=== PATIENT | male | born 1950 | race Caucasian/White ===

== ENCOUNTER 2022-10-10 16:42 | Emergency (ER) | payer OTHER, SELFPAY ==
[2022-10-10 16:46] VITALS: BP 151/82; PULSE 51; RESP 14; TEMP 36.6; O2SAT 93; BMI 30.1
--- NOTE | 2022-10-10 17:08 | ED_ITS ---
HPI - General Adult General Time Seen by Provider: 17:08 Date Seen: 10/10/22 Chief complaint: Cough Stated complaint: Heartrate at 45, fluid in lungs Time Seen by Provider: 10/10/22 17:08 Source: patient Mode of arrival: ambulatory Limitations: no limitations History of Present Illness HPI narrative: Mr. Meza is a very pleasant 71-year-old male with history of myocardial infarction hyperlipidemia hypertension, and COPD who comes to the emergency room for evaluation regarding coughing and syncopal episodes. Patient notes that he has had ongoing cough for at least 3 months. He states that he has been to the ENT because of excess phlegm and recently his coughing has gotten worse. What he is concerned about and his as well is that he has had 3 episodes of fainting with coughing last night. He coughs at such as stretching so hard that his states that he became unresponsive. She describes the 1st 2 episodes as when he was sitting in his chair and his arms shook and any fell forward and is was unresponsive. This was only for a few seconds. She states that she hit him and then he came to. The 2nd time it happened last night it persisted a little bit longer but again she hit him and he came to it happened a 3rd time and he did fall but had no injury. He notes that he does have shortness of breath with exertion but does states that this is really nothing new. Upon further discussion they note that he has had problems with this since having influenza 2 years ago. He has had no recent COVID that he knows of. They also states that he has had fatigue which is unusual for him. He denies a fever or chills. Patient denies any chest pain except when he is coughing. He has had no fever or chills. He does not have a history of seizure. He denies headache. Related Data Home Medications Medication Instructions Recorded Confirmed diltiazem HCl 180 mg 180 mg PO DAILY 10/10/22 10/10/22 capsule,extended release 24 hr fluticasone propionate 50 intranasal 10/10/22 mcg/actuation nasal spray,suspension ipratropium bromide 42 mcg (0.06 intranasal 10/10/22 %) nasal spray lansoprazole 30 mg capsule,delayed 30 mg PO DAILY 10/10/22 10/10/22 release metoprolol tartrate 25 mg tablet 25 mg PO BID 10/10/22 10/10/22 nitroglycerin 0.4 mg sublingual sublingual PRN 10/10/22 tablet rosuvastatin 40 mg tablet 40 mg PO DAILY 10/10/22 10/10/22 tadalafil 20 mg tablet 20 mg PO DAILY PRN intercourse 10/10/22 10/10/22 Previous Rx's Medication Instructions Recorded finasteride 5 mg tablet 5 mg PO QDAY #90 tabs 08/28/22 terbinafine HCl 250 mg tablet 250 mg PO QDAY #90 tabs 09/04/22 levofloxacin 500 mg tablet 500 mg PO DAILY 7 days #7 tabs 10/10/22 Allergies Allergy/AdvReac Type Severity Reaction Status Date / Time No Known Drug Allergies Allergy Verified 10/10/22 19:41 Review of Systems Status of ROS: Reports: 10 or more systems reviewed and unremarkable except as noted in History and below Const: Reports: fatigue; Denies: fever or chills Eyes: Denies: change in vision ENMT: Denies: throat pain, neck pain, throat swelling, difficulty swallowing or hoarseness Cardio: Reports: shortness of breath with exertion; Denies: chest pain, swelling of feet/ankles or lightheadedness Resp: Reports: shortness of breath and cough GI: Denies: abdominal pain, nausea, vomiting, diarrhea or difficulty swall owing : Denies: painful urination Musculo: Denies: neck pain or extremity pain Neuro: Denies: headache, numbness in extremities or weakness in extremities Endo: Reports: fatigue Allergy/Immuno: Denies: throat swelling PFSH PFSH Social History Smoking Status: Former smoker Do you use any of these nicotine containing products: None Second hand tobacco smoke exposure: No How often do you have a drink containing alcohol: monthly or less AUDIT-C Alcohol total score: 1 Non-prescribed substance use: denies use Exam Narrative: Exam Narrative: Patient is alert and oriented. EOM is full and pupils are equal round reactive face symmetrical. Speech is normal. Neck is supple. Heart with a bradycardic rate but normal rhythm. Lungs are with a few crackles in the bases right grea ter than left. No wheezing auscultated at this time. Abdomen is soft nontender. Lower extremities without edema. Const: Vital Signs, click to edit/add: Vital Signs - 24 hr 10/10/22 16:46 Temperature 97.9 F Pulse Rate [Pulse Oximeter] 51 L Respiratory Rate 14 Blood Pressure [Ri ght Upper Arm] 151/82 H Pulse Oximetry 93 Oxygen Delivery Me thod Room Air Documenting provider has reviewed patient's vital signs: yes Course Course Hospital Course: At this time will need to ascertain etiology of persistent coughing over 3 months as well as workup any it potential heart issues with the 3 syncopal episodes. Certainly this sounds like vasovagal or bradycardic event. Fortunately it does resolve. It is not happened independent of the coughing. Patient will have IV placed with blood draw to include troponin CBC comprehensive panel CRP will also check an EKG and chest x-ray at this time. Reevaluation(s) Reevaluation #1: Patient noted to have a normal chest x-ray. I do feel in light of these 3 syncopal episodes that we should do CT of the chest to ensure there is no evidence of PE. Family does agree with this. Vital Signs Vital signs: Initial Vital Signs Temperature 97.9 F 10/10/22 16:46 Temperature Source Temporal Artery Scan 10/10/22 16:46 Pulse Rate 51 L 10/10/22 16:46 Respiratory Rate 14 10/10/22 16:46 Blood Pressure 151/82 H 10/10/22 16:46 Blood Pressure Mean 105 10/10/22 16:46 Blood Pressure Position Sitting 10/10/22 16:46 Pulse Oximetry 93 10/10/22 16:46 Oxygen Delivery Method Room Air 10/10/22 16:46 Vital Signs Temperature 97.9 F 10/10/22 16:46 Pulse Rate 51 L 10/10/22 16:46 Respiratory Rate 14 10/10/22 16:46 Blood Pressure 151/82 H 10/10/22 16:46 Pulse Oximetry 93 10/10/22 16:46 Oxygen Delivery Method Room Air 10/10/22 16:46 Temperature 97.9 F 10/10/22 16:46 Pulse Rate 51 L 10/10/22 16:46 Respiratory Rate 14 10/10/22 16:46 Blood Pressure 151/82 H 10/10/22 16:46 Pulse Oximetry 93 10/10/22 16:46 Oxygen Delivery Method Room Air 05/05/23 16:46 Medical Decision Making MDM Narrative Medical decision making narrative: 1. Bronchitis-CT of the chest did show bronchitis findings. Given the fact that patient has had worsening coughing will treat with Levaquin 500 mg x 7 days. I do think we should cover atypical organisms. Did speak about the use of Levaquin and association with tendinitis. Should he experience any joint pain he would need to immediately discontinue this medication. Also spoke about the need for increase fluid intake for kidney protection. Patient will likely need to see pulmonology. He should follow up with his primary MD. Would recommend continuing use of his inhalers. 2. Syncopal episodes-at this time EKGs are reassuring and cardiac enzymes are negative x2. He is certainly in a bradycardic rate sometimes dropping as low as 48 but he is asymptomatic to that at this time. No evidence of arrhythmia during his stay in the ED on the heart monitor. He does have 1 coughing episode here and heart rate actually increases to the 60s. No significant bradycardia loss of consciousness noted while in the ED. I had the pleasure of speaking with Dr. Kebede, cardiology at [place]. He agrees these episodes are likely associated with the coughing and does not feel the need for overnight hospitalization. However, should these episodes occur independent of the coughing we would need to do further evaluation. No evidence of PE, aortic dissection or other life-threatening pathology on CT. 3. Disposition-home at this time. Start antibiotics this evening. Further Levaquin sent to his outpatient pharmacy. Return to the emergency room for fever, chest pain, worsening symptoms and as needed. Dictation done with voice recognition, and as a result, wrong word or [id number] substitutions may have occurred.? There may be errors in the script that have gone undetected.? Please consider this when interpreting information found in this chart. Medical Records Medical records reviewed: Yes I reviewed the patient's medical records Lab Data Lab results reviewed: Yes I reviewed the patient's lab results Labs: Lab Results 10/10/22 10/10/22 10/10/22 Range/Units 18:04 20:49 21:16 WBC 7.98 (4.50-11.00) K/uL RBC 5.19 (4.30-5.90) m/uL Hgb 15.2 (13.5-17.5) gm/dL Hct 46.8 (37.0-53.0) % MCV 90 (80-100) fL MCH 29 (26-34) pg MCHC 33 (32-36) gm/dL RDW Coeff of Jose 13.0 (11.5-15.5) % Plt Count 167 (140-440) K/uL Neut % (Auto) 70.6 (42.0-72.0) % Lymph % (Auto) 16.3 L (20-44) % [place] % (Auto) 11.0 (0.0-11.0) % Eos % (Auto) 1.6 (0.0-7.0) % Baso % (Auto) 0.4 (0.0-3.0) % Neut # (Auto) 5.63 (1.7-7.0) K/uL Lymph # (Auto) 1.30 (0.90-2.90) K/uL [place] # (Auto) 0.90 (0.00-0.90) K/UL Eos # (Auto) 0.13 (0.00-0.50) K/uL Baso # (Auto) 0.03 (0.00-0.30) K/uL Sodium 139 (135-149) mmol/L Potassium 4.2 (3.6-5.1) mmol/L Chloride 104 (96-114) mmol/L Carbon Dioxide 28 (20-32) mmol/L BUN 16 (7-30) mg/dL Creatinine 0.7 (0.5-1.5) mg/dL Estimated Creat Clear 70.97 Estimated GFR 99 ml/min Glucose 88 (60-115) mg/dL Calcium 8.5 (8.4-10.6) mg/dL Magnesium 2.0 (1.5-2.6) mg/dL Total Bilirubin 0.4 (0.1-1.5) mg/dL AST 29 (12-35) U/L ALT 31 (4-50) U/L Alkaline Phosphatase 64 (40-150) U/L NT-Pro-B Natriuret Pep 241 pg/mL Total Protein 6.7 (6.0-8.3) g/dL Albumin 4.2 (3.3-5.0) g/dL Urine Color Yellow (Yellow) Urine Appearance Clear (Clear) Urine pH 6.5 (5.0-8.5) Ur Specific [place] 1.010 (1.000-1.030) Urine Protein Negative (Negative) Urine Glucose (UA) Negative (Negative) Urine Ketones Negative (Negative) Urine Blood Negative (Negative) Urine Nitrite Negative (Negative) Urine Bilirubin Negative (Negative) Urine Urobilinogen 0.2 (0.2-1.0) Ur Leukocyte Esterase Negative (Negative) Urine RBC 0-2 (0-2) Urine WBC 0-2 (0-5) Ur Squamous Epith Cells None (None-Few) Urine Bacteria None (None) POC Troponin I 0.00 L 0.00 L (0.01-0.04) ng/ml Imaging Data Chest x-ray: Attestation: I have reviewed the pertinent imaging results. Radiologist's impression: Cardiovascular and mediastinum: Heart size and vasculature are normal in caliber and appearance.? Mediastinum is within normal limits.? Lungs and pleural space: Lungs are clear.? No sign of infiltrate or mass.? No sign of pleural effusion.? No pneumothorax.? Bones and soft tissues: No significant findings.? IMPRESSION: Lungs are clear. CT scan - chest: Attestation: I have reviewed the pertinent imaging results. Radiologist's impression: Heart and vasculature: Contrast opacification of the pulmonary arterial tree is adequate. No sign of pulmonary embolism. Heart size is normal. Thoracic aorta and pulmonary artery are normal in caliber. Coronary artery calcifications. Lungs and pleura: Diffuse lower lobe predominant bronchial wall thickening with areas of peripheral mucus plugging in the bilateral lower lobes. Few scattered areas of clustered nodularity in the right upper, right middle middle, and bilateral lower lobes. Right basilar atelectasis. No pleural effusions, pleural thickening, or pneumothorax. Lymph nodes/mediastinum: No mediastinal, hilar, or axillary adenopathy. Thyroid gland is unremarkable. Chest wall: No masses. Upper abdomen: Left hepatic lobe cyst. Bones: Unremarkable for age. IMPRESSION: 1. No evidence of pulmonary embolism. 2. Diffuse bronchial wall thickening with scattered areas of clustered nodularity, which may reflect small airways disease (bronchitis) or an infectious/inflammatory process to include aspiration. ECG Data Attestation: I personally reviewed and interpreted this ECG as follows: Interpretation: EKG 1. By my read shows sinus bradycardia at a rate of 51. Poor R-wave progression is noted but I do not note any acute ST or T-wave changes. EKG 2. By my read shows sinus bradycardia at a rate of 48. I do not note any acute ST or T-wave changes. Discharge Plan Discharge Clinical Impression: Bronchitis Patient Disposition: Home, Self-Care Condition: Unchanged Instructions: Acute Bronchitis (ED) Additional Instructions: Recommend continuing Levaquin as your antibiotic for an additional 6 days. Discontinue immediately if you started experiencing joint pain especially pain in the Achilles tendon. Push fluids to stay well hydrated. Return to the emergency room if you have loss of consciousness or fainting not associated with coughing. Return to the emergency room for worsening symptoms Follow-up with your regular doctor for scheduling of pulmonary consult. They may also elect to add a steroid if you are not improving. Continue your inhalers. Prescriptions: New levofloxacin 500 mg tablet 500 mg PO DAILY 7 Days Qty: 7 0RF No Action finasteride 5 mg tablet 5 mg PO QDAY Qty: 90 2RF diltiazem HCl 180 mg capsule,extended release 24hr 180 mg PO DAILY lansoprazole 30 mg capsule,delayed release(DR/EC) 30 mg PO DAILY nitroglycerin 0.4 mg tablet, sublingual sublingual PRN ipratropium bromide 42 mcg (0.06 %) spray,non-aerosol INTRANASAL Patient Comments: [NO ORIGINAL SIG] fluticasone propionate 50 mcg/actuation spray,suspension INTRANASAL Patient Comments: [NO ORIGINAL SIG] metoprolol tartrate 25 mg tablet 25 mg PO BID rosuvastatin 40 mg tablet 40 mg PO DAILY tadalafil 20 mg tablet 20 mg PO DAILY PRN (Reason: intercourse) terbinafine HCl 250 mg tablet 250 mg PO QDAY Qty: 90 0RF Follow Up/Referrals: Provider,Not a Local [Primary Care Provider] - Stand Alone Forms: [employer] Info Instructions
--- NOTE | 2022-10-10 17:21 | CRLHL7_ITS ---
For Patients: As a result of the Cures Act, medical imaging exams and procedure reports are released immediately into your electronic medical record. You may view this report before your referring provider. If you have questions, please contact your health care provider. INDICATION: SYNCOPE INDICATION: Syncope. TECHNIQUE: Chest 1 view. COMPARISON: None FINDINGS: Cardiovascular and mediastinum: Heart size and vasculature are normal in caliber and appearance. Mediastinum is within normal limits. Lungs and pleural space: Lungs are clear. No sign of infiltrate or mass. No sign of pleural effusion. No pneumothorax. Bones and soft tissues: No significant findings. IMPRESSION: Lungs are clear. Dictated by Blake Burrows MD @ 10/10/2022 6:23:49 PM Dictated by: Blake Burrows MD @ 10/10/2022 18:23:56 (Electronically Signed)
[2022-10-10] MEDS: 0.9 % SODIUM CHLORIDE 1000 ml 1,000 ML IV (17:30)
[2022-10-10 18:15] LABS: Basophils Absolute Auto 0.03 K/uL (0.00-0.30); Basophils Percent Auto 0.4 % (0.0-3.0); Eosinophils Absolute Auto 0.13 K/uL (0.00-0.50); Eosinophils Percent Auto 1.6 % (0.0-7.0); Hematocrit 46.8 % (37.0-53.0); Hemoglobin* 15.2 gm/dL (13.5-17.5); Immature Granulocytes Abs Auto 0.01 K/uL (0.00-0.30); Immature Granulocytes Pct Auto 0.1 %; Lymphocytes Percent Auto 16.3 % (20-44); Mean Corpuscular HGB Conc 33 gm/dL (32-36); Mean Corpuscular Hemoglobin 29 pg (26-34); Mean Corpuscular Volume 90 fL (80-100); Neutrophils Absolute Auto 5.63 K/uL (1.7-7.0); Neutrophils Percent Auto 70.6 % (42.0-72.0); Platelet Count* 167 K/uL (140-440); Red Blood Count 5.19 m/uL (4.30-5.90); White Blood Count* 7.98 K/uL (4.50-11.00)
[2022-10-10 18:27] LABS: Slide Review Reflex No
[2022-10-10 18:28] LABS: Albumin* 4.2 g/dL (3.3-5.0); Chloride* 104 mmol/L (96-114); Potassium* 4.2 mmol/L (3.6-5.1); Sodium* 139 mmol/L (135-149)
[2022-10-10 18:30] LABS: Creatinine* 0.7 mg/dL (0.5-1.5); Est. Creatinine Clearance* 70.97; Estimated Glomerular Filt Rate 99 ml/min
[2022-10-10 18:31] LABS: Alanine Aminotransferase* 31 U/L (4-50); Alkaline Phosphatase* 64 U/L (40-150); Aspartate Amino Transferase* 29 U/L (12-35); Bilirubin Total* 0.4 mg/dL (0.1-1.5); Blood Urea Nitrogen* 16 mg/dL (7-30); Calcium* 8.5 mg/dL (8.4-10.6); Carbon Dioxide* 28 mmol/L (20-32); Glucose* 88 mg/dL (60-115); Total Protein* 6.7 g/dL (6.0-8.3)
[2022-10-10 18:46] LABS: NT Pro B Type NatriureticPept* 241 pg/mL
--- NOTE | 2022-10-10 19:04 | CRLHL7_ITS ---
For Patients: As a result of the Century Cures Act, medical imaging exams and procedure reports are released immediately into your electronic medical record. You may view this report before your referring provider. If you have questions, please contact your health care provider. INDICATION: Syncope. TECHNIQUE: CT chest PE was acquired with 95 cc Isovue 370 IV contrast. COMPARISON: None. FINDINGS: Heart and vasculature: Contrast opacification of the pulmonary arterial tree is adequate. No sign of pulmonary embolism. Heart size is normal. Thoracic aorta and pulmonary artery are normal in caliber. Coronary artery calcifications. Lungs and pleura: Diffuse lower lobe predominant bronchial wall thickening with areas of peripheral mucus plugging in the bilateral lower lobes. Few scattered areas of clustered nodularity in the right upper, right middle middle, and bilateral lower lobes. Right basilar atelectasis. No pleural effusions, pleural thickening, or pneumothorax. Lymph nodes/mediastinum: No mediastinal, hilar, or axillary adenopathy. Thyroid gland is unremarkable. Chest wall: No masses. Upper abdomen: Left hepatic lobe cyst. Bones: Unremarkable for age. IMPRESSION: 1. No evidence of pulmonary embolism. 2. Diffuse bronchial wall thickening with scattered areas of clustered nodularity, which may reflect small airways disease (bronchitis) or an infectious/inflammatory process to include aspiration. Please note that all CT scans at this facility use dose modulation, iterative reconstruction, and/or weight-based dosing when appropriate to reduce radiation dose to as low as reasonably achievable. Dictated by Jeramie Hair MD @ 10/10/2022 8:04:34 PM (Electronically Signed)
[2022-10-10 20:56] LABS: Appearance Urine Clear (Clear); Bilirubin Urine Negative (Negative); Blood Urine Negative (Negative); Color Urine Yellow (Yellow); Glucose Urine Negative (Negative); Ketones Urine Negative (Negative); Leukocyte Esterase Urine Negative (Negative); Nitrite Urine Negative (Negative); Protein Urine Negative (Negative); Urobilinogen Urine 0.2 (0.2-1.0); pH Urine 6.5 (5.0-8.5)
[2022-10-10 21:07] LABS: RBC Urine 0-2 (0-2); WBC Urine 0-2 (0-5)
[2022-10-10] MEDS: levoFLOXacin 500 MG TABLET PO (21:30)
== END 2022-10-10 21:39 | disposition home or self-care (01) ==
PROVIDERS: Emergency Provider Family Medicine
DX: J40 Bronchitis, not specified as acute or chronic (principal); R55 Syncope and collapse
CPT/HCPCS: 36415; 71045; 71260; 80053; 81001; 83735; 83880; 84484; 85025; 93005; 99284; 99285; A9270; J7030; Q9967